=== PATIENT | female | born 1955 | race Caucasian/White ===

== ENCOUNTER 2018-02-11 12:46 | Emergency (ER) | payer BC, OTHER ==
[2018-02-11] MEDS ORDERED: Vancomycin(*) 1,000 MG in NS 0.9% 250 ML* 250 ML IVPB ONE (13:10)
[2018-02-11 14:13] LABS: EGFR Non-African American 64.5 (>60)
[2018-02-11 15:02] LABS: ABS Basophils 0 10^3/ul (0-0.2); ABS Eosinophils 0 10^3/ul (0-0.6); ABS Lymphocytes 1.2 10^3/ul (1.0-4.8); ABS Monocytes 0.4 10^3/ul (0-0.8); ABS Neutrophils 6.4 10^3/ul (1.5-7.7); ABS Nucleated RBC 0 10^3/ul; Eosinophil % 0.2 % (0-6); Hematocrit 43 % (35-47); Hemoglobin 14.7 g/dl (12.0-16.0); Lymphocyte % 14.8 % (25-47); Mean Corpuscular HGB Conc 34 g/dl (31-36); Mean Corpuscular Hemoglobin 31 pg (27-31); Mean Corpuscular Volume 91 fL (80-97); Mean Platelet Volume 7.2 um3 (7.4-10.4); Nucleated Red Blood Cells % 0.1; Platelet Count 242 10^3/ul (150-450); Red Blood Count 4.77 10^6/ul (4.0-5.4); Red Cell Distribution Width 14 % (10.5-15)
[2018-02-11 16:32] VITALS: BP 140/71
--- NOTE | 2018-02-11 21:02 | ED ---
Graciela Noble Thomas, scribed for Guzman Garcia MD on 02/11/18 at 1315 . Skin Complaint - HPI Summary HPI Summary: The patient is a 62 year old female who had a right mastectomy in 2010 and since 2011 she has had lymphadenopathy to her right upper extremity. The patient recently had a paper cut to her right arm, and since the she has developed redness, pain, and swelling to her right arm. Last night, she had chills, dizziness, and nausea. She complains of decreased sensation to her 4th and 5th fingers of her right hand. - History of Current Complaint Chief Complaint: EDExtremityUpper Time Seen by Provider: 02/11/18 12:54 Stated Complaint: RT ARM SWOLLEN Hx Obtained From: Patient Onset/Duration: Still Present Timing: Constant Onset Severity: Mild Pain Intensity: 5 Pain Scale Used: 0-10 Numeric Skin Location: Other: - Right arm Character: Swelling, Pain, Raised Aggravating Symptom(s): Nothing Alleviating Symptom(s): Nothing Associated Signs & Symptoms: Nausea Related History: Other: - RUE lymphedema since 2011 - Allergy/Home Medications Allergies/Adverse Reactions: Allergies Allergy/AdvReac Type Severity Reaction Status Date / Time codeine Allergy Hallucinati Verified 02/11/18 12:47 ons Home Medications: Home Medications Bupropion XL* [Wellbutrin XL *] 150 mg PO DAILY 02/11/18 [History Confirmed ] Dextroamphetamine/Amphetamine [Adderall Xr 30 mg Capsule] 30 mg PO DAILY [History Confirmed 02/11/18] PMH/Surg Hx/FS Hx/Imm Hx Endocrine/Hematology History: Reports: Hx Diabetes Denies: Hx Thyroid Disease Cardiovascular History: Reports: Hx Hypercholesterolemia Denies: Hx Congestive Heart Failure, Hx Hypertension, Hx Pacemaker/ICD, Hx Peripheral Vascular Disease, Other Cardiovascular Problems/Disorders - DENIES Respiratory History: Denies: Hx Asthma, Hx Chronic Obstructive Pulmonary Disease (COPD), Other Respiratory Problems/Disorders - DENIES GI History: Denies: Hx Ulcer History: Denies: Hx Renal Disease Musculoskeletal History: Reports: Other Musculoskeletal History - Hx RUE Lymphedema Denies: Hx Arthritis, Hx Osteoporosis Sensory History: Denies: Hx Cataracts, Hx Contacts or Glasses, Hx Glaucoma Opthamlomology History: Denies: Hx Cataracts, Hx Contacts or Glasses, Hx Glaucoma Neurological History: Denies: Hx Dementia, Hx Seizures Psychiatric History: Denies: Hx Anxiety, Hx Depression, Hx Substance Abuse - Cancer History Cancer Type, Location and Year: breast cancer, adhd Hx Chemotherapy: Yes - last dose 2010 goode - Surgical History Surgery Procedure, Year, and Place: myomectomy (2004), R mastectomy and quarryman (Sep 2011), R breast implant (May 2012), R breast implant removed (Aug 2012), R tonsil biopsy (2012) Infectious Disease History: No Infectious Disease History: Denies: Hx Clostridium Difficile, Hx Hepatitis, Hx Human Immunodeficiency Virus (HIV), Hx of Known/Suspected MRSA, Hx Shingles, Hx Tuberculosis, Traveled Outside the [place] in Last 30 Days - Family History Known Family History: Negative: Seizure Disorder - Social History Alcohol Use: Occasionally Hx Substance Use: No Substance Use Type: Reports: None Hx Tobacco Use: No Smoking Status (MU): Never Smoked Tobacco Review of Systems Positive: Chills. Negative: Fever Positive: Nausea Positive: Other - Pain, swelling, redness to right arm Neurological: Other - Dizziness All Other Systems Reviewed And Are Negative: Yes Physical Exam - Summary Physical Exam Summary: Appearance: The patient is well-nourished in no acute distress and in no acute pain. Skin: The skin is warm and dry. She has obvious cellulitis and edema of the right arm. There is no appreciable lymphadenopathy. HEENT: The head is normocephalic and atraumatic. The pupils are equal and reactive. The conjunctivae are clear and without drainage. Nares are patent and without drainage. Mouth reveals moist mucous membranes and the throat is without erythema and exudate. The external ears are intact. The ear canals are patent and without drainage. The tympanic membranes are intact. Neck: the neck is supple with full range of motion and non-tender. There are no carotid bruits. There is no neck vein distension. Respiratory: Chest is non-tender. Lungs are clear to auscultation and breath sounds are symmetrical and equal. Cardiovascular: Heart is regular rate and rhythm. There is no murmur or rub auscultated. There is no lower extremity edema and pulses are symmetrical and equal. Abdomen: The abdomen is soft and non-tender. There are normal bowel sounds heard in all four quadrants and there is no organomegaly palpated. Musculoskeletal: There is no back tenderness noted. Extremities are non-tender with full range of motion. There is good capillary refill. There is no lower extremity edema or calf tenderness elicited. Extremities: She has obvious cellulitis and edema of the right arm. There is no appreciable lymphadenopathy. Neurological: Patient is alert and oriented to person, place and time. The patient has symmetrical motor strength in all four extremities. Cranial nerves are grossly intact. Deep tendon reflexes are symmetrical and equal in all four extremities. Psychiatric: The patient has an appropriate affect and does not exhibit any anxiety or depression. Triage Information Reviewed: Yes Vital Signs On Initial Exam: Initial Vitals Temp Pulse Resp BP Pulse Ox 98.3 F 98 16 127/73 100 02/11/18 12:51 02/11/18 12:51 02/11/18 12:51 02/11/18 12:51 02/11/18 12:51 Vital Signs Reviewed: Yes Diagnostics - Vital Signs Vital Signs Temp Pulse Resp BP Pulse Ox 02/11/18 12:51 98.3 F 98 16 127/73 100 - Laboratory Lab Results: Lab Results 02/11/18 02/11/18 Range/Units 13:45 14:45 WBC 8.0 (3.5-10.8) 10^3/ul RBC 4.77 (4.0-5.4) 10^6/ul Hgb 14.7 (12.0-16.0) g/dl Hct 43 (35-47) % MCV 91 (80-97) fL MCH 31 (27-31) pg MCHC 34 (31-36) g/dl RDW 14 (10.5-15) % Plt Count 242 (150-450) 10^3/ul MPV 7.2 L (7.4-10.4) um3 Neut % (Auto) 79.7 (38-83) % Lymph % (Auto) 14.8 L (25-47) % [place] % (Auto) 5.0 (0-7) % Eos % (Auto) 0.2 (0-6) % Baso % (Auto) 0.3 (0-2) % Absolute Neuts (auto) 6.4 (1.5-7.7) 10^3/ul Absolute Lymphs (auto) 1.2 (1.0-4.8) 10^3/ul Absolute Monos (auto) 0.4 (0-0.8) 10^3/ul Absolute Eos (auto) 0 (0-0.6) 10^3/ul Absolute Basos (auto) 0 (0-0.2) 10^3/ul Absolute Nucleated RBC 0 10^3/ul Nucleated RBC % 0.1 Sodium 134 L (139-145) mmol/L Potassium 3.6 (3.5-5.0) mmol/L Chloride 102 (101-111) mmol/L Carbon Dioxide 25 (22-32) mmol/L Anion Gap 7 (2-11) mmol/L BUN 13 (6-24) mg/dL Creatinine 0.89 (0.51-0.95) mg/dL Est GFR ( Amer) 82.9 (>60) Est GFR (Non-Af Amer) 64.5 (>60) BUN/Creatinine Ratio 14.6 (8-20) Glucose 107 H (70-100) mg/dL Calcium 10.0 (8.6-10.3) mg/dL Total Bilirubin 0.60 (0.2-1.0) mg/dL AST 14 (13-39) U/L ALT 10 (7-52) U/L Alkaline Phosphatase 102 (34-104) U/L C-Reactive Protein 85.40 H (< 5.00) mg/L Total Protein 6.9 (6.4-8.9) g/dL Albumin 3.9 (3.2-5.2) g/dL Globulin 3.0 (2-4) g/dL Albumin/Globulin Ratio 1.3 (1-3) Result Diagrams: 02/11/18 14:45 02/11/18 13:45 Lab Statement: Any lab studies that have been ordered have been reviewed, and results considered in the medical decision making process. Re-Evaluation - Re-Evaluation First Eval Re-Evaluation Time: 16:36 Comment: Results discussed. Patient will be discharged. Course/Dx - Course Course Of Treatment: Ms. Alvarado presented with an obvious cellulitis in the right arm where she has chronic swelling from lymphedema. Her vitals and labs were stable and I will give her a shot at outpatient treatment with Keflex. She got an IV dose of Vanco here. - Diagnoses Provider Diagnoses: Cellulitis Discharge - Sign-Out/Discharge Documenting (check all that apply): Discharge - Discharge Plan Condition: Stable Disposition: HOME Prescriptions: Cephalexin CAP* [Keflex 500 CAP*] 500 mg PO QID #40 cap Cephalexin CAP* [Keflex 500 CAP*] 500 mg PO QID #40 cap Patient Education Materials: Cellulitis (ED) Referrals: Nathaniel Redman MD [Primary Care Provider] - 3 Days Additional Instructions: Follow up with your primary care physician in three days. Return to the emergency department for any new or worsening symptoms. - Billing Disposition and Condition Condition: STABLE Disposition: HOME The documentation as recorded by the Graciela sawant Thomas accurately reflects the service I personally performed and the decisions made by , Guzman Garcia MD.
== END 2018-02-11 17:03 | disposition home or self-care (01) ==
LOC: ED 12:46
DX: L03.113 Cellulitis of right upper limb (principal); E11.9 Type 2 diabetes mellitus without complications; E78.00 Pure hypercholesterolemia, unspecified; Z85.3 Personal history of malignant neoplasm of breast; F90.9 Attention-deficit hyperactivity disorder, unspecified type
CPT/HCPCS: 36415; 80053; 85025; 86140; 87040; 96360; 99282; J3370

== ENCOUNTER 2022-06-08 10:14 | Inpatient (IN) ==
[2022-06-08] MEDS ORDERED: Morphine 4 MG/ML VIAL (1 ml) IV ONE (10:35)
[2022-06-08] MEDS ORDERED: Ondansetron 4 mg VIAL 2 MG/ML 2 ml VIAL IV ONE (10:35)
[2022-06-08] MEDS ORDERED: HYDROmorphone 0.5 MG/0.5 ML SYRINGE IV SLOW PU PRN (13:07)
[2022-06-08] MEDS ORDERED: Senna TAB 8.6 mg TAB PO PRN (13:08)
[2022-06-08] MEDS ORDERED: Polyethylene Glycol 3350 17 GM PACKET PO PRN (13:08)
[2022-06-08] MEDS: Enoxaparin 40 MG/0.4 ML SYR SUBCUT SCH (16:43)
[2022-06-08] MEDS: Ondansetron 4 mg VIAL 2 MG/ML 2 ml VIAL IV PRN (23:40)
[2022-06-09 06:42] LABS: ABS Lymphocytes 0.5 10^3/ul (1.0-4.8); ABS Monocytes 0.3 10^3/ul (0-0.8); ABS Neutrophils 4.2 10^3/ul (1.5-7.7); Hematocrit 33 % (35-47); Lymphocyte % 9.4 %; Mean Corpuscular HGB Conc 34 g/dL (31-36); Mean Corpuscular Hemoglobin 35 pg (27-31); Mean Corpuscular Volume 102 fL (80-97); Mean Platelet Volume 7.4 fL (7.4-10.4); Platelet Count 234 10^3/uL (150-450); Red Blood Count 3.17 10^6 /uL (3.70-4.87); Red Cell Distribution Width 15 % (10-15); White Blood Count 4.9 10^3/uL (3.5-10.8)
[2022-06-09 07:06] LABS: Albumin/Globulin Ratio 1.7 (1-3); Calcium 9.1 mg/dL (8.6-10.3); Globulin 2.4 g/dL (2-4); Potassium 4.6 mmol/L (3.5-5.0); Total Bilirubin 0.3 mg/dL (0.2-1.0); Total Protein 6.4 g/dL (6.4-8.9); eGFR CKD-EPI 77.7 (>60)
[2022-06-09] MEDS: CMCS: Amphetamine/Dextroam ER 10(NF) 10 mg CAP.ER PO SCH (09:04)
[2022-06-09] MEDS: Senna TAB 8.6 mg TAB PO SCH ×2 (11:55→21:25)
[2022-06-09] MEDS: Enoxaparin 40 MG/0.4 ML SYR SUBCUT SCH (15:00)
[2022-06-10] MEDS: CMCS: Amphetamine/Dextroam ER 10(NF) 10 mg CAP.ER PO SCH (08:46)
[2022-06-10] MEDS: Senna TAB 8.6 mg TAB PO SCH ×2 (08:49→22:01)
[2022-06-10] MEDS: Magic MouthWash2-BEN/MAAL/LIDO/NYST 240 ML BTL (alt formulation) SWISH SWAL PRN ×3 (13:07→20:39)
[2022-06-10] MEDS: Enoxaparin 40 MG/0.4 ML SYR SUBCUT SCH (14:05)
[2022-06-11 04:48] LABS: ABS Lymphocytes 1.4 10^3/ul (1.0-4.8); ABS Monocytes 0.7 10^3/ul (0-0.8); Eosinophil % 0.3 %; Hematocrit 32 % (35-47); Hemoglobin 10.6 g/dL (12.0-16.0); Lymphocyte % 27.3 %; Mean Corpuscular HGB Conc 34 g/dL (31-36); Mean Corpuscular Hemoglobin 35 pg (27-31); Mean Corpuscular Volume 102 fL (80-97); Mean Platelet Volume 6.8 fL (7.4-10.4); Nucleated Red Blood Cells % 0.1; Platelet Count 225 10^3/uL (150-450); Red Blood Count 3.07 10^6 /uL (3.70-4.87); Red Cell Distribution Width 15 % (10-15)
[2022-06-11 05:02] LABS: INR 0.98 (0.89-1.11)
[2022-06-11 05:03] LABS: Activated Partial Thrombo Time 42.9 seconds (26.0-38.0)
[2022-06-11 05:16] LABS: Calcium 9.3 mg/dL (8.6-10.3); Potassium 4.2 mmol/L (3.5-5.0); eGFR CKD-EPI 70.5 (>60)
[2022-06-11] MEDS: CMCS: Amphetamine/Dextroam ER 10(NF) 10 mg CAP.ER PO SCH (08:14)
[2022-06-11] MEDS: Senna TAB 8.6 mg TAB PO SCH ×2 (09:10→21:23)
[2022-06-11] MEDS ORDERED: ceFAZolin 2 GM in NS PREMIX 2 GM/100 ML BAG IVPB ONE (13:49)
[2022-06-11] MEDS ORDERED: Midazolam 2 mg/2 ml VIAL 1 mg/ml 2 ml VIAL (2 mg) ONE (14:01)
[2022-06-11] MEDS ORDERED: Lidocaine 1% w EPI 1:200,000 SDV 30 ML VIAL ONE (14:02)
[2022-06-11] MEDS ORDERED: fentaNYL 100 mcg/2 ml 50 MCG/ML VIAL ONE (14:34)
[2022-06-11] MEDS ORDERED: Ketamine HCL 50 mg/ml 10 ml VIAL (500 MG) ONE (14:34)
[2022-06-11] MEDS ORDERED: Phenylephrine 40 mcg/mL 10mL (400mcg) SYRINGE ONE (15:11)
[2022-06-11] MEDS ORDERED: Phenylephrine IV 10 MG/ML 1 ml VIAL ONE (15:11)
[2022-06-11] MEDS ORDERED: HYDROmorphone 1 MG/1 ML SYRINGE IV PRN (17:06)
[2022-06-11] MEDS ORDERED: Ondansetron 4 mg VIAL 2 MG/ML 2 ml VIAL IV PRN (17:06)
[2022-06-11] MEDS ORDERED: fentaNYL 100 mcg/2 ml 50 MCG/ML VIAL IV PRN (17:06)
[2022-06-11] MEDS: Ondansetron 4 mg VIAL 2 MG/ML 2 ml VIAL IV PRN (21:11)
[2022-06-11] MEDS: ceFAZolin 1 GM X 3 DOSES POST-OP Q8H (AddVan) IVPB SCH (22:42)
[2022-06-12 04:49] LABS: Hematocrit 28 % (35-47); Hemoglobin 9.6 g/dL (12.0-16.0); Mean Corpuscular HGB Conc 34 g/dL (31-36); Mean Corpuscular Hemoglobin 35 pg (27-31); Mean Corpuscular Volume 103 fL (80-97); Mean Platelet Volume 6.7 fL (7.4-10.4); Platelet Count 198 10^3/uL (150-450); Red Blood Count 2.74 10^6 /uL (3.70-4.87); Red Cell Distribution Width 15 % (10-15); White Blood Count 5.7 10^3/uL (3.5-10.8)
[2022-06-12 05:34] LABS: Calcium 8.2 mg/dL (8.6-10.3); Potassium 4.5 mmol/L (3.5-5.0); eGFR CKD-EPI 81.2 (>60)
[2022-06-12] MEDS: ceFAZolin 1 GM X 3 DOSES POST-OP Q8H (AddVan) IVPB SCH ×2 (06:18→14:38)
[2022-06-12] MEDS: Enoxaparin 40 MG/0.4 ML SYR SUBCUT SCH (09:50)
[2022-06-12] MEDS: CMCS: Amphetamine/Dextroam ER 10(NF) 10 mg CAP.ER PO SCH (09:51)
[2022-06-12] MEDS: Senna TAB 8.6 mg TAB PO SCH ×2 (09:51→22:24)
[2022-06-12] MEDS: Ondansetron 4 mg VIAL 2 MG/ML 2 ml VIAL IV PRN (20:16)
[2022-06-12] MEDS: Magic MouthWash2-BEN/MAAL/LIDO/NYST 240 ML BTL (alt formulation) SWISH SWAL PRN (22:25)
[2022-06-13] MEDS: Ondansetron 4 mg VIAL 2 MG/ML 2 ml VIAL IV PRN ×2 (02:50→23:15)
[2022-06-13 06:48] LABS: Hematocrit 26 % (35-47); Hemoglobin 8.9 g/dL (12.0-16.0); Mean Corpuscular HGB Conc 34 g/dL (31-36); Mean Corpuscular Hemoglobin 35 pg (27-31); Mean Corpuscular Volume 104 fL (80-97); Mean Platelet Volume 7.3 fL (7.4-10.4); Platelet Count 162 10^3/uL (150-450); Red Blood Count 2.52 10^6 /uL (3.70-4.87); Red Cell Distribution Width 15 % (10-15); White Blood Count 5.8 10^3/uL (3.5-10.8)
[2022-06-13 07:06] LABS: Calcium 8.2 mg/dL (8.6-10.3); Potassium 4.4 mmol/L (3.5-5.0); eGFR CKD-EPI 96.7 (>60)
[2022-06-13] MEDS: Enoxaparin 40 MG/0.4 ML SYR SUBCUT SCH (09:30)
[2022-06-13] MEDS: CMCS: Amphetamine/Dextroam ER 10(NF) 10 mg CAP.ER PO SCH (09:30)
[2022-06-13] MEDS: Senna TAB 8.6 mg TAB PO SCH ×2 (09:32→19:21)
[2022-06-13] MEDS: Magic MouthWash2-BEN/MAAL/LIDO/NYST 240 ML BTL (alt formulation) SWISH SWAL PRN ×2 (14:04→21:41)
[2022-06-13] MEDS ORDERED: Magnesium Hydroxide LIQ 30 ML UDC PO ONE (20:08)
[2022-06-13 22:38] LABS: Rapid Strep Molecular Negative (Negative)
[2022-06-14] MEDS: Polyethylene Glycol 3350 17 GM PACKET PO SCH ×2 (06:04→08:28)
[2022-06-14 06:28] LABS: Hematocrit 25 % (35-47); Hemoglobin 8.4 g/dL (12.0-16.0); Mean Corpuscular HGB Conc 34 g/dL (31-36); Mean Corpuscular Hemoglobin 35 pg (27-31); Mean Corpuscular Volume 102 fL (80-97); Mean Platelet Volume 7.3 fL (7.4-10.4); Platelet Count 165 10^3/uL (150-450); Red Blood Count 2.43 10^6 /uL (3.70-4.87); Red Cell Distribution Width 15 % (10-15); White Blood Count 6.5 10^3/uL (3.5-10.8)
[2022-06-14 07:32] LABS: Calcium 8.4 mg/dL (8.6-10.3); Potassium 4.3 mmol/L (3.5-5.0); eGFR CKD-EPI 92.2 (>60)
[2022-06-14] MEDS: CMCS: Amphetamine/Dextroam ER 10(NF) 10 mg CAP.ER PO SCH (08:22)
[2022-06-14] MEDS: Ondansetron 4 mg VIAL 2 MG/ML 2 ml VIAL IV PRN (08:26)
[2022-06-14] MEDS: Senna TAB 8.6 mg TAB PO SCH (08:26)
[2022-06-14] MEDS: Enoxaparin 40 MG/0.4 ML SYR SUBCUT SCH (08:28)
[2022-06-14 11:58] VITALS: BP 132/50
[2022-06-14] MEDS: Magic MouthWash2-BEN/MAAL/LIDO/NYST 240 ML BTL (alt formulation) SWISH SWAL PRN (13:47)
== END 2022-06-14 16:30 | disposition home or self-care (01) | DRG 308 ==
LOC: ED 10:14 → EDHOLD 13:05 → MEDTELE 19:51
PROVIDERS: ADMIT Internal Medicine Medical Oncology; ATTEND Internal Medicine Medical Oncology

== ENCOUNTER 2022-07-11 11:58 | Inpatient (IN) ==
[2022-07-11] MEDS ORDERED: NS 0.9% 1000 ml BAG 1,000 ML IV ONE ×2 (12:32→16:14)
[2022-07-11] MEDS: Ondansetron 4 mg VIAL 2 MG/ML 2 ml VIAL IV ONE ×2 (12:38→17:47)
[2022-07-11 12:48] LABS: ABS Lymphocytes 0.6 10^3/ul (1.0-4.8); ABS Monocytes 0.7 10^3/ul (0-0.8); ABS Neutrophils 5.2 10^3/ul (1.5-7.7); Eosinophil % 0.3 %; Hematocrit 31 % (35-47); Mean Corpuscular HGB Conc 32 g/dL (31-36); Mean Corpuscular Hemoglobin 33 pg (27-31); Mean Corpuscular Volume 102 fL (80-97); Mean Platelet Volume 7.1 fL (7.4-10.4); Platelet Count 206 10^3/uL (150-450); Red Blood Count 3.01 10^6 /uL (3.70-4.87); Red Cell Distribution Width 19 % (10-15); White Blood Count 6.5 10^3/uL (3.5-10.8)
[2022-07-11 13:05] LABS: INR 1.05 (0.89-1.11)
[2022-07-11 13:34] LABS: Albumin 3.6 g/dL (3.2-5.2); Albumin/Globulin Ratio 1.6 (1-3); C Reactive Protein 35.12 mg/L (<8.01); Calcium 8.8 mg/dL (8.6-10.3); Globulin 2.2 g/dL (2-4); Magnesium 1.9 mg/dL (1.9-2.7); Total Bilirubin 0.8 mg/dL (0.2-1.0); Total Protein 5.8 g/dL (6.4-8.9); eGFR CKD-EPI 83.7 (>60)
[2022-07-11] MEDS ORDERED: HYDROmorphone 1 MG/1 ML SYRINGE IV SLOW PU ONE (15:38)
[2022-07-11] MEDS ORDERED: Ondansetron 4 mg VIAL 2 MG/ML 2 ml VIAL IV ONE ×2 (15:40→17:48)
[2022-07-11] MEDS ORDERED: Morphine 4 MG/ML VIAL (1 ml) IV ONE ×2 (15:40→17:34)
[2022-07-11] MEDS ORDERED: Ondansetron 4 mg VIAL 2 MG/ML 2 ml VIAL ONE (17:44)
[2022-07-11] MEDS ORDERED: Senna TAB 8.6 mg TAB PO PRN (18:59)
[2022-07-11] MEDS ORDERED: Polyethylene Glycol 3350 17 GM PACKET PO PRN (18:59)
[2022-07-11] MEDS: Ondansetron 4 mg VIAL 2 MG/ML 2 ml VIAL IV PRN (20:43)
[2022-07-11] MEDS: Enoxaparin 40 MG/0.4 ML SYR SUBCUT SCH (20:45)
[2022-07-11] MEDS: Morphine ER 15 mg TAB ** extended release PO SCH (20:47)
[2022-07-11] MEDS: NS 0.9% 1000 ml BAG 1,000 ML IV SCH (22:00)
[2022-07-11] MEDS: Morphine 2 MG/ML SYRINGE IV PRN (22:05)
[2022-07-12 02:29] LABS: Urine Appearance Clear; Urine Bilirubin Negative (Negative); Urine Blood Negative (Negative); Urine Color Yellow; Urine Glucose Negative (Negative); Urine Ketones Negative (Negative); Urine Nitrite Negative (Negative); Urine Protein Negative (Negative); Urine Urobilinogen 0.2 (Negative) (Negative)
[2022-07-12] MEDS: Ondansetron 4 mg VIAL 2 MG/ML 2 ml VIAL IV PRN ×2 (06:05→15:36)
[2022-07-12] MEDS: Morphine 2 MG/ML SYRINGE IV PRN ×3 (06:05→17:39)
[2022-07-12 06:16] LABS: ABS Lymphocytes 0.7 10^3/ul (1.0-4.8); ABS Monocytes 0.6 10^3/ul (0-0.8); ABS Neutrophils 4.3 10^3/ul (1.5-7.7); Eosinophil % 0.4 %; Hematocrit 28 % (35-47); Hemoglobin 9.2 g/dL (12.0-16.0); Lymphocyte % 13.1 %; Mean Corpuscular HGB Conc 33 g/dL (31-36); Mean Corpuscular Hemoglobin 34 pg (27-31); Mean Corpuscular Volume 104 fL (80-97); Mean Platelet Volume 7.9 fL (7.4-10.4); Platelet Count 167 10^3/uL (150-450); Red Cell Distribution Width 19 % (10-15); White Blood Count 5.7 10^3/uL (3.5-10.8)
[2022-07-12 07:16] LABS: Albumin 3.4 g/dL (3.2-5.2); Albumin/Globulin Ratio 1.4 (1-3); Calcium 8.1 mg/dL (8.6-10.3); Globulin 2.5 g/dL (2-4); Potassium 4.1 mmol/L (3.5-5.0); Total Bilirubin 0.6 mg/dL (0.2-1.0); Total Protein 5.9 g/dL (6.4-8.9); eGFR CKD-EPI 92.2 (>60)
[2022-07-12] MEDS: Morphine ER 15 mg TAB ** extended release PO SCH (09:14)
[2022-07-12] MEDS: Amphetamine/Dextroam ER 10(NF) 10 mg CAP.ER PO SCH (10:05)
[2022-07-12] MEDS: NS 0.9% 1000 ml BAG 1,000 ML IV SCH (13:51)
[2022-07-12] MEDS ORDERED: Gadoteridol (CONTRAST) 279.3 MG/ML 10 ML IV ONE (16:46)
[2022-07-12] MEDS: Magic MouthWash2-BEN/MAAL/LIDO/NYST 240 ML BTL (alt formulation) SWISH SPIT SCH ×2 (17:13→20:42)
[2022-07-12] MEDS: Enoxaparin 40 MG/0.4 ML SYR SUBCUT SCH (17:16)
[2022-07-12] MEDS: Morphine ER 30 mg TAB ** extended release PO SCH (20:40)
[2022-07-13] MEDS: NS 0.9% 1000 ml BAG 1,000 ML IV SCH ×3 (00:26→23:19)
[2022-07-13] MEDS: Morphine 2 MG/ML SYRINGE IV PRN (07:09)
[2022-07-13] MEDS: Ondansetron 4 mg VIAL 2 MG/ML 2 ml VIAL IV PRN ×3 (07:09→16:53)
[2022-07-13] MEDS: Amphetamine/Dextroam ER 10(NF) 10 mg CAP.ER PO SCH (07:51)
[2022-07-13] MEDS: Morphine ER 30 mg TAB ** extended release PO SCH ×2 (07:51→21:06)
[2022-07-13] MEDS: Magic MouthWash2-BEN/MAAL/LIDO/NYST 240 ML BTL (alt formulation) SWISH SPIT SCH ×4 (07:52→21:06)
[2022-07-13] MEDS ORDERED: Dexamethasone IV 4 MG/ML VIAL 1 ml VIAL IV SLOW PU ONE (13:00)
[2022-07-13] MEDS ORDERED: Palonosetron 0.05 MG/ML 5 ML VIAL IV ONE (13:00)
[2022-07-13] MEDS ORDERED: APREPITANT 130 MG/18 ML VIAL IV ONE (13:00)
[2022-07-13] MEDS ORDERED: NS 0.9% IVPB SCH ×2 (14:00→14:30)
[2022-07-13] MEDS ORDERED: GEMCITABINE IVPB SCH (14:00)
[2022-07-13] MEDS ORDERED: CARBOPLATIN IVPB SCH (14:30)
[2022-07-13] MEDS: Enoxaparin 40 MG/0.4 ML SYR SUBCUT SCH (21:04)
[2022-07-14] MEDS: Amphetamine/Dextroam ER 10(NF) 10 mg CAP.ER PO SCH (08:01)
[2022-07-14] MEDS: Morphine ER 30 mg TAB ** extended release PO SCH ×2 (08:03→22:27)
[2022-07-14 09:49] LABS: ABS Lymphocytes 0.1 10^3/ul (1.0-4.8); ABS Monocytes 0.2 10^3/ul (0-0.8); ABS Neutrophils 4.7 10^3/ul (1.5-7.7); Hematocrit 29 % (35-47); Hemoglobin 9.2 g/dL (12.0-16.0); Lymphocyte % 2.9 %; Mean Corpuscular HGB Conc 32 g/dL (31-36); Mean Corpuscular Hemoglobin 33 pg (27-31); Mean Corpuscular Volume 102 fL (80-97); Mean Platelet Volume 7.6 fL (7.4-10.4); Platelet Count 179 10^3/uL (150-450); Red Cell Distribution Width 17 % (10-15); White Blood Count 5.1 10^3/uL (3.5-10.8)
[2022-07-14] MEDS: Magic MouthWash2-BEN/MAAL/LIDO/NYST 240 ML BTL (alt formulation) SWISH SPIT SCH ×4 (09:51→22:27)
[2022-07-14] MEDS: Senna TAB 8.6 mg TAB PO SCH ×2 (09:52→22:27)
[2022-07-14 10:46] LABS: Albumin 3.4 g/dL (3.2-5.2); Calcium 7.9 mg/dL (8.6-10.3); Magnesium 2.2 mg/dL (1.9-2.7); Potassium 4.2 mmol/L (3.5-5.0); Total Protein 5.8 g/dL (6.4-8.9); eGFR CKD-EPI 102.9 (>60)
[2022-07-14 10:47] LABS: Albumin/Globulin Ratio 1.4 (1-3); Globulin 2.4 g/dL (2-4); Total Bilirubin 0.5 mg/dL (0.2-1.0)
[2022-07-14] MEDS: Ondansetron 4 mg VIAL 2 MG/ML 2 ml VIAL IV PRN (18:30)
[2022-07-14] MEDS ORDERED: Sodium Phosphate ADULT ENEMA 133 ML BTL PR ONE (19:00)
[2022-07-14] MEDS: Enoxaparin 40 MG/0.4 ML SYR SUBCUT SCH (22:26)
[2022-07-15] MEDS: Ondansetron 4 mg VIAL 2 MG/ML 2 ml VIAL IV PRN ×2 (08:55→20:26)
[2022-07-15] MEDS: Morphine 2 MG/ML SYRINGE IV PRN ×3 (08:55→20:36)
[2022-07-15] MEDS ORDERED: Lorazepam PYXIS KEY PRN (09:03)
[2022-07-15] MEDS ORDERED: LORazepam 2 mg VIAL 1 ml IV PUSH ONE (09:03)
[2022-07-15] MEDS ORDERED: Prochlorperazine 5 mg/ml 2 ml VIAL (10 mg) IV PRN (10:35)
[2022-07-15] MEDS: Magic MouthWash2-BEN/MAAL/LIDO/NYST 240 ML BTL (alt formulation) SWISH SPIT SCH ×4 (10:40→23:13)
[2022-07-15] MEDS: Senna TAB 8.6 mg TAB PO SCH ×2 (10:41→23:13)
[2022-07-15] MEDS: Amphetamine/Dextroam ER 10(NF) 10 mg CAP.ER PO SCH (10:41)
[2022-07-15 12:37] LABS: ABS Lymphocytes 0.4 10^3/ul (1.0-4.8); ABS Monocytes 0.1 10^3/ul (0-0.8); ABS Neutrophils 3.8 10^3/ul (1.5-7.7); Eosinophil % 0.8 %; Hematocrit 28 % (35-47); Hemoglobin 8.8 g/dL (12.0-16.0); Mean Corpuscular HGB Conc 32 g/dL (31-36); Mean Corpuscular Hemoglobin 33 pg (27-31); Mean Corpuscular Volume 102 fL (80-97); Mean Platelet Volume 7.2 fL (7.4-10.4); Platelet Count 163 10^3/uL (150-450); Red Blood Count 2.71 10^6 /uL (3.70-4.87); Red Cell Distribution Width 18 % (10-15); White Blood Count 4.3 10^3/uL (3.5-10.8)
[2022-07-15] MEDS ORDERED: DEXAMETHASONE IVPB ONE (13:12)
[2022-07-15] MEDS ORDERED: NS 0.9% IVPB ONE (13:12)
[2022-07-15 13:27] LABS: Albumin 3.4 g/dL (3.2-5.2); Albumin/Globulin Ratio 1.5 (1-3); Calcium 7.9 mg/dL (8.6-10.3); Globulin 2.3 g/dL (2-4); Potassium 3.6 mmol/L (3.5-5.0); Total Bilirubin 0.6 mg/dL (0.2-1.0); Total Protein 5.7 g/dL (6.4-8.9); eGFR CKD-EPI 104.4 (>60)
[2022-07-15] MEDS ORDERED: Dexamethasone IV 4 MG/ML VIAL 1 ml VIAL IV SLOW PU ONE (13:30)
[2022-07-15] MEDS: Morphine ER 30 mg TAB ** extended release PO SCH ×2 (13:36→20:32)
[2022-07-15] MEDS ORDERED: Glycerin ADULT 2.4 gm SUPP PR ONE (17:27)
[2022-07-15] MEDS: Enoxaparin 40 MG/0.4 ML SYR SUBCUT SCH (23:12)
[2022-07-16] MEDS: Ondansetron ODT 4 mg TAB 4 MG TAB SL PRN ×2 (08:45→18:43)
[2022-07-16] MEDS: Morphine ER 30 mg TAB ** extended release PO SCH ×2 (08:45→18:45)
[2022-07-16] MEDS: Amphetamine/Dextroam ER 10(NF) 10 mg CAP.ER PO SCH (09:24)
[2022-07-16] MEDS: Senna TAB 8.6 mg TAB PO SCH ×2 (09:24→20:49)
[2022-07-16] MEDS: Magic MouthWash2-BEN/MAAL/LIDO/NYST 240 ML BTL (alt formulation) SWISH SPIT SCH ×4 (10:13→21:02)
[2022-07-16] MEDS: Enoxaparin 40 MG/0.4 ML SYR SUBCUT SCH (21:01)
[2022-07-16] MEDS: Morphine 2 MG/ML SYRINGE IV PRN (21:47)
[2022-07-17] MEDS: Morphine ER 30 mg TAB ** extended release PO SCH ×2 (10:18→19:55)
[2022-07-17] MEDS: Magnesium Hydroxide LIQ 30 ML UDC PO PRN (11:24)
[2022-07-17] MEDS: Amphetamine/Dextroam ER 10(NF) 10 mg CAP.ER PO SCH (12:11)
[2022-07-17] MEDS: Senna TAB 8.6 mg TAB PO SCH ×2 (12:12→20:31)
[2022-07-17] MEDS: Magic MouthWash2-BEN/MAAL/LIDO/NYST 240 ML BTL (alt formulation) SWISH SPIT SCH ×4 (12:12→20:14)
[2022-07-17] MEDS ORDERED: PEG 3000 GI LAVAGE 1 GALLON PO ONE (13:29)
[2022-07-17] MEDS: Morphine 2 MG/ML SYRINGE IV PRN ×2 (13:48→21:36)
[2022-07-17] MEDS: LORazepam 2 mg VIAL 1 ml IV PUSH PRN ×2 (13:48→22:10)
[2022-07-17] MEDS: Enoxaparin 40 MG/0.4 ML SYR SUBCUT SCH (20:46)
[2022-07-17] MEDS: Ondansetron 4 mg VIAL 2 MG/ML 2 ml VIAL IV PRN (21:34)
[2022-07-18] MEDS: Morphine 2 MG/ML SYRINGE IV PRN ×2 (01:38→06:24)
[2022-07-18] MEDS: Ondansetron 4 mg VIAL 2 MG/ML 2 ml VIAL IV PRN ×4 (01:38→14:55)
[2022-07-18] MEDS: Morphine ER 30 mg TAB ** extended release PO SCH ×3 (05:30→20:05)
[2022-07-18] MEDS: Pantoprazole VIAL 40 MG VIAL IV SCH (06:24)
[2022-07-18 07:21] LABS: ABS Lymphocytes 0.7 10^3/ul (1.0-4.8); ABS Neutrophils 2.3 10^3/ul (1.5-7.7); Eosinophil % 0.5 %; Hematocrit 26 % (35-47); Hemoglobin 8.6 g/dL (12.0-16.0); Lymphocyte % 23.4 %; Mean Corpuscular HGB Conc 33 g/dL (31-36); Mean Corpuscular Hemoglobin 33 pg (27-31); Mean Corpuscular Volume 102 fL (80-97); Mean Platelet Volume 7.3 fL (7.4-10.4); Platelet Count 120 10^3/uL (150-450); Red Blood Count 2.59 10^6 /uL (3.70-4.87); Red Cell Distribution Width 17 % (10-15)
[2022-07-18 07:45] LABS: Albumin 3.4 g/dL (3.2-5.2); Albumin/Globulin Ratio 1.5 (1-3); Calcium 8.1 mg/dL (8.6-10.3); Globulin 2.3 g/dL (2-4); Potassium 3.9 mmol/L (3.5-5.0); Total Bilirubin 1.1 mg/dL (0.2-1.0); Total Protein 5.7 g/dL (6.4-8.9); eGFR CKD-EPI 107.8 (>60)
[2022-07-18] MEDS ORDERED: Magnesium CITRATE LIQ 300 ML BTL PO PRN (08:48)
[2022-07-18] MEDS: Amphetamine/Dextroam ER 10(NF) 10 mg CAP.ER PO SCH (09:21)
[2022-07-18] MEDS: Senna TAB 8.6 mg TAB PO SCH ×2 (09:23→17:15)
[2022-07-18] MEDS: Magic MouthWash2-BEN/MAAL/LIDO/NYST 240 ML BTL (alt formulation) SWISH SPIT SCH ×4 (09:24→19:34)
[2022-07-18] MEDS: Magnesium Hydroxide LIQ 30 ML UDC PO PRN ×2 (10:50→17:14)
[2022-07-18] MEDS ORDERED: NS 0.9% 500 ml BAG 500 ML IV ONE (15:47)
[2022-07-18] MEDS: Enoxaparin 40 MG/0.4 ML SYR SUBCUT SCH (19:34)
[2022-07-18] MEDS: Morphine ORAL CONCENTRATE 5 MG/0.25 ML ORAL.SYRIN PO PRN (22:56)
[2022-07-18] MEDS: LORazepam 2 mg VIAL 1 ml IV PUSH PRN (23:07)
[2022-07-19] MEDS: Pantoprazole VIAL 40 MG VIAL IV SCH (05:18)
[2022-07-19] MEDS: Ondansetron 4 mg VIAL 2 MG/ML 2 ml VIAL IV PRN (05:40)
[2022-07-19] MEDS: Morphine ORAL CONCENTRATE 5 MG/0.25 ML ORAL.SYRIN PO PRN ×2 (05:40→17:58)
[2022-07-19 05:43] LABS: ABS Lymphocytes 0.8 10^3/ul (1.0-4.8); ABS Neutrophils 1.6 10^3/ul (1.5-7.7); Eosinophil % 0.3 %; Hematocrit 25 % (35-47); Hemoglobin 8.4 g/dL (12.0-16.0); Lymphocyte % 31.8 %; Mean Corpuscular HGB Conc 33 g/dL (31-36); Mean Corpuscular Hemoglobin 34 pg (27-31); Mean Corpuscular Volume 102 fL (80-97); Mean Platelet Volume 7.6 fL (7.4-10.4); Platelet Count 100 10^3/uL (150-450); Red Blood Count 2.49 10^6 /uL (3.70-4.87); Red Cell Distribution Width 17 % (10-15); White Blood Count 2.4 10^3/uL (3.5-10.8)
[2022-07-19 07:07] LABS: Calcium 8.2 mg/dL (8.6-10.3); Potassium 3.8 mmol/L (3.5-5.0)
[2022-07-19 07:13] LABS: eGFR CKD-EPI 102.4 (>60)
[2022-07-19] MEDS: Senna TAB 8.6 mg TAB PO SCH ×3 (07:40→17:46)
[2022-07-19] MEDS: Amphetamine/Dextroam ER 10(NF) 10 mg CAP.ER PO SCH (08:34)
[2022-07-19] MEDS: Morphine ER 30 mg TAB ** extended release PO SCH (08:37)
[2022-07-19] MEDS: Magic MouthWash2-BEN/MAAL/LIDO/NYST 240 ML BTL (alt formulation) SWISH SPIT SCH ×4 (08:40→22:07)
[2022-07-19] MEDS ORDERED: Furosemide 20 mg/2 ml IV VIAL IV ONE (10:38)
[2022-07-19] MEDS: Magnesium Hydroxide LIQ 30 ML UDC PO PRN (12:14)
[2022-07-19] MEDS: Ondansetron ODT 4 mg TAB 4 MG TAB SL PRN (17:58)
[2022-07-19] MEDS: Enoxaparin 40 MG/0.4 ML SYR SUBCUT SCH (22:07)
[2022-07-20] MEDS: Morphine ER 30 mg TAB ** extended release PO SCH ×2 (00:59→08:52)
[2022-07-20 07:45] VITALS: BP 149/63
[2022-07-20] MEDS: Amphetamine/Dextroam ER 10(NF) 10 mg CAP.ER PO SCH (08:52)
[2022-07-20] MEDS: Magnesium Hydroxide LIQ 30 ML UDC PO PRN (09:06)
[2022-07-20] MEDS: Senna TAB 8.6 mg TAB PO SCH (09:06)
[2022-07-20] MEDS: Ondansetron ODT 4 mg TAB 4 MG TAB SL PRN (09:06)
[2022-07-20] MEDS: Magic MouthWash2-BEN/MAAL/LIDO/NYST 240 ML BTL (alt formulation) SWISH SPIT SCH (09:13)
== END 2022-07-20 15:30 | disposition hospice, home (50) | DRG 861 ==
LOC: ED 11:58 → MED 11:58 → ED 07-12 12:59 → SUATTDRO 07-12 13:20
PROVIDERS: ADMIT Hospitalist; ATTEND Pediatrics